=== PATIENT | female | born 1945 | race Caucasian/White ===

== ENCOUNTER 2018-01-11 09:00 | Day surgery (SDC) | payer MEDICARE ==
[~2018-01-11] VITALS: Ht 162.6 cm; Wt 58.1 kg
[2018-01-11 09:04] VITALS: BP 105/59
[2018-01-11] MEDS ORDERED: LEVO50TA11 PO (09:08)
[2018-01-11] MEDS ORDERED: SODIUM CHLORIDE 0.9% 1000ML 1,000 ML IV ONE (09:52)
[2018-01-11] MEDS ORDERED: PROPOFOL 10 MG/ML 20ML VIAL IV ONE (10:42)
[2018-01-11 11:05] VITALS: BP 91/41
== END 2018-01-11 11:45 | disposition home or self-care (01) ==
LOC: ENDO 09:00 → DAH 09:00 → ENDO 11:45
PROVIDERS: ATTEND Internal Medicine Gastroenterology
DX: Z12.11 Encounter for screening for malignant neoplasm of colon (principal); K56.2 Volvulus; E03.9 Hypothyroidism, unspecified; Z82.49 Family history of ischemic heart disease and other diseases of the circulatory system; Z83.71 Family history of colonic polyps; Z98.890 Other specified postprocedural states; Z79.899 Other long term (current) drug therapy; Z80.9 Family history of malignant neoplasm, unspecified
CPT/HCPCS: A4606; G0105; J2704; J7030

== ENCOUNTER 2020-03-05 11:00 | Inpatient (IN) | payer MEDICARE ==
[~2020-03-05] VITALS: Ht 162.6 cm; Wt 56.3 kg
[2020-03-05 11:40] LABS: BASOPHILS % (AUTO) 0.9 % (0.0-5.0); EOSINOPHILS % (AUTO) 9.9 % (0.0-8.0); HEMATOCRIT 46.5 % (36-48); LYMPHOCYTES % (AUTO) 26.7 % (21.0-51.0); MEAN CORPUSCULAR HEMOGLOBIN 31.2 pg (27.0-33.0); MEAN CORPUSCULAR HGB CONC 33.3 g/dL (32.0-36.0); MEAN CORPUSCULAR VOLUME 93.6 fL (79-99); MONOCYTES % (AUTO) 6.3 % (3.0-13.0); NEUTROPHILS % (AUTO) 55.9 % (40.0-77.0); PLATELET COUNT (AUTO) 262 K/uL (130-400); RED BLOOD CELL COUNT(AUTO) 4.97 MIL/uL (4.00-5.50); RED CELL DISTRIBUTION WIDTH 12.4 % (11.0-15.5); WHITE BLOOD COUNT (AUTO) 6.9 K/uL (4.8-10.8)
[2020-03-05 11:47] LABS: CREATININE 1.2 mg/dL (0.5-1.5); POTASSIUM 4.6 mmol/L (3.5-5.1)
[2020-03-08 10:08] VITALS: BP 99/66
[2020-03-08] MEDS ORDERED: LEVO88TA7 PO (10:26)
[2020-03-08] MEDS ORDERED: EXCEES PO (10:26)
[2020-03-09] VITALS (20 sets, daily range): BP systolic 85–143; BP diastolic 39–62
[2020-03-09] MEDS ORDERED: LIDOCAINE 1%-EPI 1:100,000 20 ML VIAL IJ ONE (07:42)
[2020-03-09] MEDS: LACTATED RINGERS 1000ML 1,000 ML IV SCH ×2 (08:02→08:57)
[2020-03-09] MEDS ORDERED: SUCCINYLCHOLINE CHLORIDE 20 MG/ML 10 ML VIAL ONE (08:03)
[2020-03-09] MEDS ORDERED: ONDANSETRON HCL 4 MG/2 ML VIAL ONE (08:03)
[2020-03-09] MEDS ORDERED: DEXAMETHASONE SOD PHOSPHATE 10MG/ML 1ML VIAL ONE (08:03)
[2020-03-09] MEDS ORDERED: LIDOCAINE PF 2% 5ML ABBOJECT ONE (08:03)
[2020-03-09] MEDS: CEFAZOLIN SODIUM 1 GM VIAL IVP ONE ×2 (08:04→08:23)
[2020-03-09] MEDS: CALDOLOR 800MG+NS 250ML 250 ML IV PRN ×2 (08:04→08:50)
[2020-03-09] MEDS ORDERED: FENTANYL CITRATE PF 50 MCG/1 ML 2ML VIAL ONE (08:04)
[2020-03-09] MEDS ORDERED: PROPOFOL 10 MG/ML 20ML VIAL IV ONE (08:04)
[2020-03-09] MEDS ORDERED: MEPERIDINE-PF 25 MG/ML SYG ONE (08:04)
[2020-03-09] MEDS ORDERED: ROCURONIUM 10MG/1ML SYR 10 MG/ML ML ONE (08:04)
[2020-03-09] MEDS ORDERED: EPHEDRINE SULFATE 50 MG/ML AMPULE ONE (08:30)
[2020-03-09] MEDS ORDERED: GLYCOPYRROLATE 1 MG/5 ML SYRINGE ONE (08:39)
[2020-03-09] MEDS ORDERED: NEOSTIGMINE 5MG/5ML SYR IV ONE (09:23)
[2020-03-09] MEDS ORDERED: DOCUSATE SODIUM 100 MG CAP PO PRN (10:45)
[2020-03-09] MEDS ORDERED: MEPERIDINE-PF 75 MG/ML SYG IM PRN (10:45)
[2020-03-09] MEDS ORDERED: BISACODYL 10 MG SUPP.RECT RC PRN (10:45)
[2020-03-09] MEDS ORDERED: SIMETHICONE 80 MG TAB.CHEW PO PRN (10:45)
[2020-03-09] MEDS ORDERED: HYDROCODONE/ACETAMINOPHEN 5/325 MG TAB PO PRN (10:45)
[2020-03-09] MEDS ORDERED: PROMETHAZINE HCL 25 MG/ML 1ML AMPULE IM PRN ×2 (10:45)
[2020-03-09] MEDS ORDERED: ACETAMINOPHEN-CODEINE 300/30MG TAB PO PRN (10:45)
[2020-03-09] MEDS ORDERED: IBUPROFEN 800 MG TAB PO SCH (10:45)
--- NOTE | 2020-03-09 13:45 | NUR ---
assisted to the bathroom, voided 600ml of bloody urine, pericare done, assisted back to bed Addendum: 03/09/20 at 1353 by JULIETA CASTILLO RN Amended: Links added.
[2020-03-09] MEDS ORDERED: CEFAZOLIN SODIUM 1 GM VIAL IVP SCH (14:00)
--- NOTE | 2020-03-09 18:00 | NUR ---
verbal and written discharge instructions given, informed to call the MD office tomorrow to make an appointment, prescription given. informed to call the doctor for future concerns. pt voided understanding to all things discussed. Addendum: 03/09/20 at 1825 by JULIETA CASTILLO RN Amended: Links added.
--- NOTE | 2020-03-09 18:35 | NUR ---
pt is dismissed in stable condition, brought to private car via wheelchair by Meredith Davis pcp Addendum: 03/09/20 at 1839 by JULIETA CASTILLO RN Amended: Links added.
[2020-03-09] MEDS ORDERED: CALDOLOR 800MG+NS 250ML 250 ML IV SCH (18:45)
== END 2020-03-09 18:35 | disposition home or self-care (01) | DRG 743 ==
LOC: EDSTATUS 11:00 → DAHIP 03-09 06:52 → WSH 03-09 11:30
PROC: 0JQC0ZZ Repair Pelvic Region Subcutaneous Tissue and Fascia, Open Approach (ICD-10-PCS; 2020-03-09)
PROC: 0UT97ZZ Resection of Uterus, Via Natural or Artificial Opening (ICD-10-PCS; principal; 2020-03-09 08:16)
PROC: 0JQC0ZZ Repair Pelvic Region Subcutaneous Tissue and Fascia, Open Approach (ICD-10-PCS; 2020-03-09 08:16)
DX: N81.3 Complete uterovaginal prolapse (principal); N81.6 Rectocele; E03.9 Hypothyroidism, unspecified
CPT/HCPCS: 36415; 80048; 85025; 86850; 86900; 86901; 88307; 96365; A4344; A4351; G0378; J0330; J0690; J1100; J1741; J2001; J2175; J2405; J2704; J2710; J3010; J3490; J7030; J7120; U0003

== ENCOUNTER → 2024-07-21 | Outpatient (CLI) | payer MEDICARE ==
[~2024-07-21] MED LIST: EXCEES PO; LEVO88TA7 PO
[2024-07-21 10:12] LABS: POTASSIUM 4.5 mmol/L (3.5-5.1)
== END | disposition home or self-care (01) ==
LOC: LAB 08:37
PROVIDERS: ATTEND Internal Medicine Cardiovascular Disease
DX: I25.10 Atherosclerotic heart disease of native coronary artery without angina pectoris (principal)
CPT/HCPCS: 36415; 80048

== ENCOUNTER → 2024-07-28 | Outpatient (CLI) | payer MEDICARE ==
[~2024-07-28] MED LIST changes: +IOHEXOL 350 MG/ML 100ML INFUS..BTL IV ONE
--- NOTE | 2024-07-28 09:59 | HMCIMG ---
CT CARDIAC ANGIO W/CONT. CCTA REASON: SOB COMPARISON: None TECHNIQUE: Images are obtained through the heart in the axial plane before and during bolus IV contrast infusion, 100 cc Omnipaque 350. 2-D and 3-D multiplanar reconstruction images were then performed. The injection had to be repeated once due to motion artifact on the first sequence, total contrast volume was 200 cc. FINDINGS: This dictation is for the noncardiac findings only. Cardiac and coronary artery findings are reported separately. Visualized portions of the lungs are clear. There is normal-appearing pulmonary interstitium. There is no hilar or mediastinal lymphadenopathy. Chest wall structures appear unremarkable. IMPRESSION: 1. Unremarkable noncardiac portions of CT cardiac angiography.
== END | disposition home or self-care (01) ==
LOC: RAH 07:42
PROVIDERS: ATTEND Internal Medicine Cardiovascular Disease
DX: I25.10 Atherosclerotic heart disease of native coronary artery without angina pectoris (principal); R06.00 Dyspnea, unspecified; R06.02 Shortness of breath
CPT/HCPCS: 93306; 75574; Q9967

== ENCOUNTER 2024-12-03 06:00 | Day surgery (SDC) | payer MEDICARE ==
[2024-12-01 11:33] LABS: BASOPHILS # (AUTO) 0.07 K/uL (0.00-0.20); BASOPHILS % (AUTO) 1.1 % (0.0-5.0); EOSINOPHILS # (AUTO) 0.29 K/uL (0.00-0.70); EOSINOPHILS % (AUTO) 4.4 % (0.0-8.0); HEMATOCRIT 45.9 % (36-48); IMMATURE GRANULOCYTE ABSOLUTE 0.01 K/uL (0-1); LYMPHOCYTES # (AUTO) 1.8 K/uL (1.0-4.8); MEAN CORPUSCULAR HEMOGLOBIN 31.7 pg (27.0-33.0); MEAN CORPUSCULAR HGB CONC 33.3 g/dL (32.0-36.0); MEAN CORPUSCULAR VOLUME 95.2 fL (79-99); MONOCYTES # (AUTO) 0.5 K/uL (0.1-1.0); MONOCYTES % (AUTO) 8.1 % (3.0-13.0); NEUTROPHILS # (AUTO) 3.8 K/uL (1.8-7.7); NEUTROPHILS % (AUTO) 58.2 % (40.0-77.0); PLATELET COUNT (AUTO) 221 K/uL (130-400); RED BLOOD CELL COUNT(AUTO) 4.82 MIL/uL (4.00-5.50); RED CELL DISTRIBUTION WIDTH 12.3 % (11.0-15.5); WHITE BLOOD COUNT (AUTO) 6.5 K/uL (4.8-10.8)
[2024-12-01 11:43] VITALS: BP 117/62; PULSE 64; RESP 18; TEMP 97.3
[2024-12-01 11:45] LABS: CREATININE 0.9 mg/dL (0.5-1.0); POTASSIUM 4.5 mmol/L (3.5-5.1)
[2024-12-01 11:51] LABS: INR 0.96 (0.85-1.15); PROTHROMBIN TIME 10.2 SEC (9.6-11.6)
[2024-12-01 11:52] LABS: PARTIAL THROMBOPLASTIN TIME 28.2 SEC (26.3-35.5)
[2024-12-01 11:59] LABS: B-TYPE NATRIURETIC PEPTIDE 72 pg/mL (0-100)
--- NOTE | 2024-12-01 12:03 | EKG ---
[facility] Test Date: 2024-12-01 Test Time: 11:12:16 Pat Name: MONIKA YE Department: [facility] Room: [facility] Gender: F [employer] Operator: [id number] : 1945 Requested By: INOCENCIO LINDSEY Order Number: [id number] Reading MD: Inocencio Washington Measurements Intervals [place] Rate: 61 P: 56 VA: 170 QRS: -31 QRSD: 95 T: 24 QT: 375 QTc: 378 Interpretive Statements Sinus rhythm Left axis deviation Low voltage, precordial leads No previous ECG available for comparison RSR' IN V1 OR V2, PROBABLY NORMAL VARIANT Electronically Signed On 12-03-2024 14:00:54 CDT by Inocencio Washington Please click the below link to view image of tracing.
--- NOTE | 2024-12-01 12:51 | HMCIMG ---
Exam Type: CHEST 1VW Clinical Information: PREOP Comparison: None Findings: The lungs are clear of infiltrates. The heart is normal in size. The bony and soft tissue structures of the chest are unremarkable. Impression: Clear lungs.
[~2024-12-03] VITALS: Ht 160 cm; Wt 52.6 kg
[2024-12-03] VITALS (10 sets, daily range): BP systolic 96–151; BP diastolic 42–88; PULSE 58–83; RESP 9–16; TEMP 97.6–98.2
[~2024-12-03 06:00] MED LIST changes: -IOHEXOL 350 MG/ML 100ML INFUS..BTL IV ONE
[2024-12-03] MEDS: 0.9%NACL 1000ML 1,000 ML IV SCH (06:43)
[2024-12-03] MEDS ORDERED: IOHEXOL 350 MG/ML 100ML INFUS..BTL IV ONE (07:03)
[2024-12-03] MEDS ORDERED: niCARDIpine 25MG INJ IV ONE (07:03)
[2024-12-03] MEDS ORDERED: HEParin 10,000 UNIT/10ML (1,000 UNIT/ML) VIAL ONE (07:03)
[2024-12-03] MEDS ORDERED: LIDOCAINE HCL 400MG/20ML VIAL ONE (07:03)
[2024-12-03] MEDS ORDERED: HEParin-NS 1,000 UNIT/500 ML 1,000 ML IV ONE (07:04)
[2024-12-03] MEDS ORDERED: NITROGLYCERIN 50MG VIAL ONE (07:04)
[2024-12-03] MEDS ORDERED: MIDAZOLAM HCL 1 MG/ML 2ML VIAL ONE (07:18)
[2024-12-03] MEDS ORDERED: FENTanyl CITRate PF 50 MCG/1 ML 2ML VIAL ONE (07:18)
--- NOTE | 2024-12-03 08:55 | PRN ---
PROCEDURE NOTE Indications: 1. Abnormal coronary CTA done in October of 2024 2. HLP 3. Strong family history of heart disease Procedures: Coronary angiogram Introduction: After informed written consent was obtained, the patient was brought to the Catheterization Lab in the usual fasting state. Following sterile prep and drape, a time out was performed, then moderate sedation was administered, 1mg of Versed and 25mcg of Fentanyl, then 1% Lidocaine was infiltrated into the right wrist. Using a Modified Seldinger technique, a 6Fr Sheath was inserted into the right radial artery. While under fluoroscopic guidance, diagnostic coronary catheters were advanced over a wire into the central circulation where they were aspirated, flushed and placed to pressure monitoring, once the wire was removed. Coronary Angio: The left and right coronary arteries were engaged with appropriate catheters and angiography was performed under continuous pressure monitoring. Cardiac Findings: Right dominant system LM: Large caliber vessel with mild luminal irregularities. The vessel bifurcates into the LAD and LCX. 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 80% stenosis in the proximal LAD. The rest of the vessel has mild luminal irregularities. TALIA three blood flow distally. Diagonal 1: Small caliber vessel with mild luminal irregularities LCx: Medium caliber vessel with 20% stenosis in the proximal LCX and 50-60% stenosis in the mid LCX. OM1: Medium caliber vessel with mild luminal irregularities RCA: Large caliber vessel with 70% stenosis in the proximal RCA. The rest of the vessel has mild luminal irregularities. RPDA: Medium caliber vessel with diffuse 50% stenosis in the mid to distal RPDA RPLV: Medium caliber vessel with mild luminal irregularities Medications given: Versed 1mg, Fentanyl 25mcg, heparin 5000 units, nitroglycerin 400mcg and nicardipine 200mcg Coronary Intervention: None Complications: None Conscious Sedation Monitoring: Under my direct order and supervision, medication for moderate conscious sedation was administered by the nursing staff and the patients level of consciousness and physiological status was monitored by an independent trained nurse. Closure of Access Site: After the case completed the sheath was pulled and a TR band was deployed on the right radial artery until hemostasis was achieved. Conclusion: 1. 3V CAD (80% stenosis in the proximal and proximal to mid LAD, 50-60% stenosis in the mid LCX, 70% stenosis in the proximal RCA) 2. Abnormal coronary CTA done in October of 2024 3. HLP 4. Strong family history of heart disease Recommendation: 1. Continue goal-directed medical therapy 2. Start atorvastatin 20 mg qhs 3. Please enact TR band removal protocol. 4. 3 hours of bedrest 5. Start NS at 100 mL/hour x3 hours. 6. Okay to DC once the TR band removal protocol has been complete and the right wrist is soft, and free of bruising, bleeding, and or hematoma formation. 7. No driving for the next 48 hours. 8. No heavy lifting or strenuous exercise for the next two weeks. 9. We will refer the patient for CABG evaluation, to be done as an outpatient INOCENCIO LINDSEY MD Dec 03, 2024 08:55
[2024-12-03] MEDS ORDERED: GLUCAGON 1MG KIT 1 MG ML IM PRN (09:00)
[2024-12-03] MEDS ORDERED: DEXTROSE 50%-WATER 50 ML DISP.SYRIN IV PRN (09:00)
[2024-12-03] MEDS ORDERED: 0.9%NACL 1000ML 1,000 ML IV SCH (09:00)
--- NOTE | 2024-12-03 12:12 | NUR ---
tr band: tr band removed with no active bleeding present. cleansed area with chloraprep followed by applying sterile 2x2 gauze than 2x2 tegaderm. no redness/swelling noted to surrounding area rt wrist.
== END 2024-12-03 12:30 | disposition home or self-care (01) ==
LOC: DAH 06:00
PROVIDERS: ATTEND Internal Medicine Cardiovascular Disease
DX: R93.1 Abnormal findings on diagnostic imaging of heart and coronary circulation (principal); I25.10 Atherosclerotic heart disease of native coronary artery without angina pectoris; E78.5 Hyperlipidemia, unspecified; E03.9 Hypothyroidism, unspecified; R94.30 Abnormal result of cardiovascular function study, unspecified; R06.09 Other forms of dyspnea; R01.1 Cardiac murmur, unspecified; F41.9 Anxiety disorder, unspecified; K21.9 Gastro-esophageal reflux disease without esophagitis; E66.9 Obesity, unspecified; Z90.710 Acquired absence of both cervix and uterus; Z82.49 Family history of ischemic heart disease and other diseases of the circulatory system; Z98.41 Cataract extraction status, right eye; Z98.42 Cataract extraction status, left eye; Z68.21 Body mass index [BMI] 21.0-21.9, adult; Z79.899 Other long term (current) drug therapy; Z79.01 Long term (current) use of anticoagulants
CPT/HCPCS: 80048; 83880; 85025; 85610; 85730; 36415; 71045; 93005; 93454; Q9965; C1769; C1894; J3010; J3490 ×3; J7030; J1644 ×2; J2250; Q9967; A4215; A4222; A6260; A4221; A4663; A4216; A6206; A4606; A4223 ×3; 96360; 96361; 99156; 99157